=== PATIENT | female | born 1940 | race Caucasian/White ===

== ENCOUNTER → 2020-09-02 | Day surgery (SDC) | payer OTHER ==
[~2020-09-02] VITALS: Ht 152.4 cm; Wt 55.5 kg
[~2020-09-02] MED LIST: ATOR40TA28 PO; FURO40 PO; FentaNYL CITRATE PF 100 MCG/2 ML VIAL IVP ONE; FentaNYL CITRATE PF 100 MCG/2 ML VIAL ONE; HEPARIN SODIUM 1000 UNITS/NS 1,000 ML IARTER ONE; HEPARIN SODIUM 1000 UNITS/NS 1,000 ML ONE; HEPARIN SODIUM,PORCINE 5,000 UNITS/ML VIAL IVP ONE; IOHEXOL 300 MG/ML 100 ML VIAL ONE; IOHEXOL 300 MG/ML 150 ML VIAL IARTER ONE; IOHEXOL 300 MG/ML 150 ML VIAL ONE; IOHEXOL 300 MG/ML 50 ML VIAL ONE; ISOS60TA77 PO; ISOSORBIDE MONONITRATE 60 MG ER TABLET PO ONE; LIDOCAINE 1% 30 ML/SOD BICARB 8.4% 4 ML SQ ONE; LIDOCAINE/PF 1% 30 ML VIAL ONE; LOSA50TA37 PO; METF-960 PO; METO50 PO; METOPROLOL TARTRATE 50 MG TABLET ONE; METOPROLOL TARTRATE 50 MG TABLET PO ONE; MIDAZOLAM HCL 2 MG/2 ML VIAL IVP ONE; MIDAZOLAM HCL 2 MG/2 ML VIAL ONE; NITROGLYCERIN 0.4 MG SUBLINGUAL TABLET #25 SL ONE; RANO500T3 PO; SODIUM BICARBONATE 50 MEQ/50 ML VIAL ONE; SODIUM CHLORIDE 0.9% 1,000 ML IV ONE; TICAGRELOR 90 MG TABLET ONE; TICAGRELOR 90 MG TABLET PO ONE
[2020-09-02 11:40] LABS: GLUCOMETER DEV NAME(LOC) SDS.; GLUCOSE,POINT OF CARE 96 MG/DL (70-110)
[2020-09-02 13:55] VITALS: BP 165/88
[2020-09-02 15:15] VITALS: BP 134/63
== END | disposition home or self-care (01) ==
LOC: CATHLAB 10:05
PROVIDERS: ATTEND Internal Medicine Interventional Cardiology
DX: I25.110 Atherosclerotic heart disease of native coronary artery with unstable angina pectoris (principal); T82.855A Stenosis of coronary artery stent, initial encounter; Y83.8 Other surgical procedures as the cause of abnormal reaction of the patient, or of later complication, without mention of misadventure at the time of the procedure; I10 Essential (primary) hypertension; D64.9 Anemia, unspecified; E78.5 Hyperlipidemia, unspecified; M19.90 Unspecified osteoarthritis, unspecified site; Z95.5 Presence of coronary angioplasty implant and graft; Z98.890 Other specified postprocedural states; Z79.899 Other long term (current) drug therapy; Z95.0 Presence of cardiac pacemaker
CPT/HCPCS: 82962; 99152; 99153; C1760; C1874; C1887; C9600; J1644; J2250; J3010; J3490 ×2; Q9967 ×2; 92920; 92928